=== PATIENT | female | born 1975 | race Caucasian/White ===

== ENCOUNTER 2019-09-18 10:30 | Outpatient (CLI) | payer BC, SELFPAY ==
--- NOTE | ~2019-09-18 | MM_ITS ---
EXAMINATION: MM screening angela BI w lindsay HISTORY: Screening mammogram TECHNIQUE: Craniocaudal and mediolateral oblique 3-D tomosynthesis images were obtained and synthetic 2-D images were generated. CAD analysis was submitted and interpreted. COMPARISON: 07/13/2018, 06/07/2017, 06/03/2016 bilateral digital screening mammogram examinations BREAST PARENCHYMAL COMPOSITION: There are scattered areas of fibroglandular density. FINDINGS: A 5.5 mm mass is present in the lower posterior right breast medially (MLO Tomosynthesis im age 48/74). Otherwise there is no evidence of suspicious mass, calcification, or architectural distortion to sugg est malignancy in either breast. There has been no suspicious interval change. IMPRESSION: 1. 5.5 mm new mass is in the posterior lower inner right breast 2. Recommend diagnostic right mammogram and right breast ultrasound examination BI-RADS Category 0: Incomplete: Needs additional imaging evaluation. Reviewed, dictated and finalized at location A.
== END 2019-09-18 10:31 | disposition home or self-care (01) ==
LOC: ANHIMG 10:44
PROVIDERS: PCP Internal Medicine; Visit Provider Obstetrics & Gynecology
DX: Z12.31 Encounter for screening mammogram for malignant neoplasm of breast (principal); R92.8 Other abnormal and inconclusive findings on diagnostic imaging of breast
CPT/HCPCS: 77063; 77067

== ENCOUNTER 2019-10-02 13:16 | Outpatient (CLI) | payer BC, SELFPAY ==
--- NOTE | ~2019-10-02 | MMUS_ITS ---
EXAMINATION: MM diagnostic mammo unilat RT, US breast RT limited HISTORY: 5.5 mm new mass suggested in posterior lower inner right breast on screening mammogram of TECHNIQUE: ML full-field and MLO and cc spot 3-D tomosynthesis images of the right breast were perfor med and synthetic 2-D images were generated. CAD analysis was submitted and interpreted. High resolut ion targeted lower inner quadrant right breast ultrasound was performed. COMPARISON: 09/18/2019 bilateral digital screening mammogram FINDINGS: MAMMOGRAPHIC FINDINGS: Up to approximately 4 mm asymmetric 4 mm ill-defined opacity is suggested posteriorly in the lower in ner right breast. ULTRASOUND: No corresponding sonographic correlate could be located. IMPRESSION: 1. Probable benign finding 2. Six-month diagnostic right mammogram and targeted right breast ultrasound examination are recommen ded. BI-RADS category 3, probably benign findings. Reviewed, dictated and finalized at location A. IMPRESSION: 1. Probable benign finding 2. Six-month diagnostic right mammogram and targeted right breast ultrasound ex amination are recommended. BI-RADS category 3, probably benign findings.
== END 2019-10-02 13:17 | disposition home or self-care (01) ==
PROVIDERS: PCP Internal Medicine; Visit Provider Obstetrics & Gynecology
DX: R92.8 Other abnormal and inconclusive findings on diagnostic imaging of breast (principal)
CPT/HCPCS: 76642; 77065

== ENCOUNTER 2020-04-02 13:13 | Outpatient (CLI) | payer BC, SELFPAY ==
--- NOTE | ~2020-04-02 | MMUS_ITS ---
EXAMINATION: MM diagnostic angela RT w lindsay, US breast RT limited HISTORY: Six-month follow-up of 4 mm ill-defined mammographic opacity posteriorly in the lower inner right breast on 10/02/2019 the diagnostic right digital mammogram TECHNIQUE: ML, MLO and cc full field and spot 3-D tomosynthesis images of right breast were performed and synthetic 2-D images were generated. CAD analysis was submitted and interpreted. High resolution lower inner quadrant right breast ultrasound was performed. COMPARISON: 10/02/2019 diagnostic right digital mammogram and limited right breast ultrasound BREAST PARENCHYMAL COMPOSITION: There are scattered areas of fibroglandular density. FINDINGS: MAMMOGRAPHIC FINDINGS: There is a circumscribed 5 mm low-density opacity situated posteriorly in the lower inner quadrant of the right breast. No suspicious mass or architectural distortion, malignant constipation, skin thickening or retraction of the right breast is evident otherwise. ULTRASOUND: At 4:00 5 cm from the nipple there is a septated cyst measuring approximately 3.6 x 5.8 mm, without i nternal vascularity or posterior shadowing. IMPRESSION: 1. Benign septated approximately 3.6 x 5.8 mm cyst at 4:00 5 cm from nipple 2. No mammographic evidence of malignancy 3. Routine annual mammographic screening is recommended BI-RADS Category 2: Benign finding(s). Reviewed, dictated and finalized at location A. 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 Benign septated approximately 3.6 x 5.8 mm cyst at 4:00 5 cm from nipple 2. No mammographic evidence of malignancy 3. Routine annual mammographic screening is recommended BI-RADS Category 2: Benign finding(s).
== END 2020-04-02 13:14 | disposition home or self-care (01) ==
PROVIDERS: PCP Internal Medicine; Visit Provider Obstetrics & Gynecology
DX: N60.01 Solitary cyst of right breast (principal)
CPT/HCPCS: 76642; 77061; 77065; G0279

== ENCOUNTER 2021-05-12 14:22 | Outpatient (CLI) | payer BC, SELFPAY ==
--- NOTE | ~2021-05-12 | MM_ITS ---
EXAMINATION: MM screening angela BI w lindsay HISTORY: Screening TECHNIQUE: Craniocaudal and mediolateral oblique 3-D tomosynthesis images were obtained and synthetic 2-D images were generated. CAD analysis was submitted and interpreted. COMPARISON: Comparison to multiple prior studies sequentially, with oldest reviewed study dated 05/2016. BREAST PARENCHYMAL COMPOSITION: The breasts are heterogeneously dense, which may obscure small masses . FINDINGS: There is no evidence of suspicious mass, calcification, or architectural distortion to sugg est malignancy in either breast. There has been no suspicious interval change. IMPRESSION: 1. No mammographic evidence of malignancy. 2. Recommend routine screening mammography in one year. BI-RADS Category 1: Negative Reviewed, dictated and finalized at location A. 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
== END 2021-05-12 14:23 | disposition home or self-care (01) ==
LOC: ANHIMG 14:24
PROVIDERS: PCP Internal Medicine; Visit Provider Internal Medicine
DX: Z12.31 Encounter for screening mammogram for malignant neoplasm of breast (principal)
CPT/HCPCS: 77063; 77067

== ENCOUNTER 2022-08-21 09:41 | Outpatient (CLI) | payer BC, SELFPAY ==
--- NOTE | ~2022-08-21 | MM_ITS ---
EXAMINATION: MM screening [facility] BI w lindsay HISTORY: Screening mammogram TECHNIQUE: Craniocaudal and mediolateral oblique 3-D tomosynthesis images were obtained and synthetic 2-D images were generated. CAD analysis was submitted and interpreted. COMPARISON: 05/12/2021, 04/02/2020, 10/21/2019, 09/18/2019 BREAST PARENCHYMAL COMPOSITION: The breasts are heterogeneously dense, which may obscure small masses . FINDINGS: A chronic stable mass of the lower inner breast is considered benign given the lack of inte rval change. No suspicious mass, calcification, or architectural distortion are identified in either breast to suggest malignancy. There has been no suspicious interval change. IMPRESSION: 1. No mammographic evidence of malignancy. 2. Recommend routine screening mammography in one year. BI-RADS Category 2: Benign finding(s). Reviewed, dictated and finalized at location A.
== END 2022-08-21 09:42 | disposition home or self-care (01) ==
PROVIDERS: PCP Internal Medicine; Visit Provider Obstetrics & Gynecology
DX: Z12.31 Encounter for screening mammogram for malignant neoplasm of breast (principal)
CPT/HCPCS: 77063; 77067

== ENCOUNTER 2023-02-15 14:23 | Emergency (ER) | payer BC, SELFPAY ==
--- NOTE | 2023-02-15 14:26 | ED.UPPEXIN ---
HPI - Extremity Injury (Upper) General Chief Complaint: Skin/Abscess/Foreign Body Stated Complaint: L FINGER PAIN/SWELLING Time Seen by Provider: 02/15/23 14:26 Source: patient Mode of arrival: ambulatory Limitations: no limitations History of Present Illness HPI narrative: Patient is a 47-year-old female who presents with swelling and pain to the tip of left 5th digit. Patient states she was driving yesterday when she felt like she got stung/bit. Patient has noticed increase in swelling and pain. Reports it looks like a blister. Denies any drainage from area. Does reports redness surrounding the blister Related Data Allergies Allergy/AdvReac Type Severity Reaction Status Date / Time sulfamethizole Allergy Unknown Hives Verified 02/11/23 09:40 sulfamethoxazole Allergy Unknown Itching Verified 02/11/23 09:40 trimethoprim Allergy Unknown Rash Verified 02/11/23 09:40 Review of Systems Review of Systems: All systems reviewed & are unremarkable except as noted in HPI and below Constitutional: Constitutional: Denies body ache(s), Denies chills, Denies fatigue, Denies fever(s), Denies headache(s), Denies malaise and Denies weakness Eyes: Eyes: Denies blurry vision, Denies irritation and Denies loss of vision ENT: Denies otalgia, Denies headache(s), Denies nasal discharge, Denies sinus pain and Denies sore throat Cardiovascular: Cardiovascular: Denies chest pain, Denies irregular heart rhythm and Denies dyspnea Respiratory: Respiratory: Denies dyspnea Gastrointestinal: Gastrointestinal: Denies abdominal pain, Denies melena, Denies hematochezia, Denies diarrhea, Denies nausea and Denies vomiting Musculoskeletal: Musculoskeletal: Denies back pain, Denies myalgias and Denies arthralgias Integumentary/Breasts: Skin/Breast: Denies pruritus, Denies rash and Reports wounds Neurologic: Denies headache(s), Denies loss of vision and Denies weakness Psychiatric: Psychiatric: Reports no additional psychiatric complaints Endocrine: Endocrine: Denies fatigue PMFSH Family History Family History Mother Depression Father Hypertension Family history of cardiovascular disease Family history of chronic obstructive pulmonary disease Family history of cardiomyopathy, Onset Age: 67 Family history of atrial fibrillation Grandparent Family history of cardiovascular disease Sibling Hypertension Other Family history of allergic disorder Family history of kidney disease Family history of malignant neoplasm Social History Social History Smoking status: Never smoker Second hand tobacco smoke exposure: No Alcohol intake: current Alcohol use details: occasionally Substance use: never Substance use type: does not use Lack of Transportation: No Lack of Food: Never True Current Housing: I Have Housing Concerned About Future Housing: No Difficulty Paying Gas/Electric Bills: No Difficulty Paying for Meds: No Currently Unemployed: No Education: Bachelor's Degree Difficulty w/ Childcare or Family Care: No Comments At time of signature, agree with nursing past medical, surgical, social and family history. There is no relevant family history pertinent to the presenting complaint. Exam Const: General: cooperative, healthy appearing, comfortable, no acute distress and well nourished Nutritional Appearance: well nourished Orientation/consciousness: patient oriented x3 Limitations: no limitations HENMT: Head: normal to inspection, normocephalic and atraumatic Ears: hearing grossly normal bilaterally and external ears normal Face/Nose/Sinus: Normal external nose present, normal facial exam and face symmetric Face and sinus: normal facial exam and face symmetric Mouth: Yes lip normal Eyes: General: appearance normal, both eyes and all related structures Alignment and Position: alignment
[2023-02-15 14:32] VITALS: BP 130/91; PULSE 78; RESP 18; TEMP 37; O2SAT 100
== END 2023-02-15 15:16 | disposition home or self-care (01) ==
PROVIDERS: Emergency Provider Nurse Practitioner Family; PCP Nurse Practitioner
DX: L03.012 Cellulitis of left finger (principal); L02.512 Cutaneous abscess of left hand; I10 Essential (primary) hypertension
CPT/HCPCS: 10160; 99213; G0463

== ENCOUNTER 2023-02-24 12:41 | Outpatient (CLI) | payer BC, SELFPAY ==
--- NOTE | ~2023-02-24 | US_ITS ---
EXAMINATION: US carotid duplex BI DATE: 02/24/2023 13:57 INDICATION: Sudden vision loss TECHNIQUE: Grayscale, color Doppler, and pulsed Doppler images of the cervical carotid arteries were obtained. The degree of vessel stenosis is placed in one of the following categories: normal, <50%, 5 0-69%, >=70% but less than near-occlusion, near-occlusion, or total occlusion. Note that percent sten osis relative to normal distal artery lumen diameter is indirectly measured from velocity measurement s as described by Andrzej, et al. Radiology 2003; [id number]. Notes: Normal: Peak systolic velocity <125 centimeters/sec and no plaque <50%. Peak systolic velocity <125 ( EDV <40; ICA/CCA PSV ratio <2.0; used these factors only a tandem lesions or low cardiac output or co ntralateral disease) 50-69 %: PSV 125-230 (EDV 40-100; ratio 2-4) >= 70% but less than near occlusion: PSV greater than 230 (EDV > 100; ratio> 4.0) Near Occlusion: PSV that is variable; markedly narrowed lumen Occlusion: Absent flow on color/spectral Doppler and no lumen on larson scale. COMPARISON: None. FINDINGS: RIGHT: The right common carotid artery (CCA) peak systolic velocity (PSV) is 126 cm/s. The right internal ca rotid artery (ICA) PSV is 99 cm/s. The right ICA end-diastolic velocity (EDV) is 41 cm/s. The right I CA/CCA PSV ratio is 0.8. The external carotid artery (ECA) PSV is 105 cm/s. There is antegrade flow i n the right vertebral artery. LEFT: The left CCA PSV is 131 cm/s. The left ICA PSV is 117 cm/s. The left ICA EDV is 44 cm/s. The left ICA /CCA PSV ratio is 0.9. The ECA PSV is 97 cm/s. There is antegrade flow in the left vertebral artery. IMPRESSION: 1. Less than 50% stenosis in the right internal carotid artery by sonographic criteria. 2. Less than 50% stenosis in the left internal carotid artery by sonographic criteria. Reviewed, dictated and finalized at location B. IMPRESSION: 1. Less than 50% stenosis in the right internal carotid artery by sonographic c milad. 2. Less than 50% stenosis in the left internal carotid artery by sonographic fransico hinkle.
== END 2023-02-24 12:42 | disposition home or self-care (01) ==
PROVIDERS: PCP Nurse Practitioner; Visit Provider Nurse Practitioner
DX: H53.139 Sudden visual loss, unspecified eye (principal); I65.23 Occlusion and stenosis of bilateral carotid arteries
CPT/HCPCS: 93880

== ENCOUNTER 2023-02-26 00:23 | Day surgery (SDC) | payer BC, SELFPAY ==
[2023-02-16 14:44] VITALS: BMI 23.5
[2023-02-26 10:11] VITALS: BP 99/75; PULSE 109; RESP 16; TEMP 36.1; O2SAT 100
[2023-02-26] MEDS: LACTATED RINGERS 1,000 ML 150 ML IV CONT (10:26)
--- NOTE | 2023-02-26 10:38 | P.PNAN_ITS ---
Anes - Initial Pre Proc Eval Procedure: Operation Date: 02/26/23 11:00 Proposed Procedures p Screening Colonoscopy - hSabbir Melvin MD Date/Time: 02/26/23 10:38 Surgeon: Shabbir Melvin MD Pre Op Diagnosis: neoplasm screening Patient Data Age: 47 Gender: F Height: 1.68 m Weight: 62.4 kg Last Vital Signs Temp 97.0 F L 02/26/23 10:11 Pulse 109 H 02/26/23 10:11 Resp 16 02/26/23 10:11 BP 99/75 L 02/26/23 10:11 Pulse Ox 100 02/26/23 10:11 O2 Del Method Room Air 02/26/23 10:11 Allergies Allergy/AdvReac Type Severity Reaction Status Date / Time sulfamethizole Allergy Unknown Hives Verified 02/26/23 09:49 sulfamethoxazole Allergy Unknown Itching Verified 02/26/23 09:49 trimethoprim Allergy Unknown Rash Verified 02/26/23 09:49 Home Medications Medication Instructions Recorded Confirmed Type No Home Medications 02/16/23 02/26/23 History Patient hx anesthesia problems: none Family hx anesthesia problems: none Results Review: All pre-operative results and documents have been reviewed as part of the pre- operative evaluation. [facility] Family History Family History Mother Depression Father Hypertension Family history of cardiovascular disease Family history of chronic obstructive pulmonary disease Family history of cardiomyopathy, Onset Age: 67 Family history of atrial fibrillation Grandparent Family history of cardiovascular disease Sibling Hypertension Other Family history of allergic disorder Family history of kidney disease Family history of malignant neoplasm Social History Social History Smoking status: Never smoker Second hand tobacco smoke exposure: No Alcohol intake: current Alcohol use details: socially Substance use: never Substance use type: does not use Lack of Transportation: No Lack of Food: Never True Current Housing: I Have Housing Concerned About Future Housing: No Difficulty Paying Gas/Electric Bills: No Difficulty Paying for Meds: No Currently Unemployed: No Education: Bachelor's Degree Difficulty w/ Childcare or Family Care: No Living arrangements: with family Spiritual care concerns: No Anes - Eval Final PreProcedure Day of Procedure 02/26/23 10:38 Patient weight: normal Heart: regular rate and rhythm Lungs: clear to auscultation Airway: Mallampati scale class II Neurological: alert and oriented Last oral intake: >/= 8 hours ASA classification: II Emergent: no Anesthetic plan: proceed Anesthesia type and monitoring: general GIVS and standard monitoring Results Review: All pre-operative results and documents have been reviewed as part of the pre- operative evaluation. Informed Consent: The patient's anesthetic plan and its attendant risks and benefits were discussed with the patient/family/POA. Questions were solicited and answers provided to the satisfaction of the patient/family/POA.
--- NOTE | 2023-02-26 11:56 | PM.HPGS ---
History of Present Illness History of Present Illness Consent: Risks, benefits, and alternatives have been discussed and questions answered. Patient agrees to proceed with procedure. Chief complaint: neoplasm screening Narrative: Henrietta Reese is a 47 year old female here for first screening colonoscopy Review of Systems Constitutional: Constitutional: Denies headache(s) and Denies weakness Eyes: Eyes: Denies blurry vision ENT: Reports Normal hearing present, Denies headache(s) and Denies neck pain Cardiovascular: Cardiovascular: Denies chest pain and Denies dyspnea Respiratory: Respiratory: Denies dyspnea Gastrointestinal: Gastrointestinal: Reports no additional gastrointestinal complaints Genitourinary: Genitourinary: Denies dysuria Musculoskeletal: Musculoskeletal: Denies neck pain Integumentary/Breasts: Skin/Breast: Denies dry skin Neurologic: Reports Normal hearing present, Denies headache(s) and Denies weakness Psychiatric: Psychiatric: Denies anxiety Endocrine: Endocrine: Denies change in body appearance Hematologic/Lymphatic: Hematologic/Lymphatic: Denies easy bleeding Allergic/Immunologic: Allergic/Immunologic: Denies urticaria PMFSH Family History Family History Mother Depression Father Hypertension Family history of cardiovascular disease Family history of chronic obstructive pulmonary disease Family history of cardiomyopathy, Onset Age: 67 Family history of atrial fibrillation Grandparent Family history of cardiovascular disease Sibling Hypertension Other Family history of allergic disorder Family history of kidney disease Family history of malignant neoplasm Social History Social History Smoking status: Never smoker Second hand tobacco smoke exposure: No Alcohol intake: current Alcohol use details: socially Substance use: never Substance use type: does not use Lack of Transportation: No Lack of Food: Never True Current Housing: I Have Housing Concerned About Future Housing: No Difficulty Paying Gas/Electric Bills: No Difficulty Paying for Meds: No Currently Unemployed: No Education: Bachelor's Degree Difficulty w/ Childcare or Family Care: No Living arrangements: with family Spiritual care concerns: No Meds Home Medications and Allergies Home Medications Medication Instructions Recorded Confirmed Type No Home Medications 02/16/23 02/26/23 History Allergies Allergy/AdvReac Type Severity Reaction Status Date / Time sulfamethizole Allergy Unknown Hives Verified 02/26/23 09:49 sulfamethoxazole Allergy Unknown Itching Verified 02/26/23 09:49 trimethoprim Allergy Unknown Rash Verified 02/26/23 09:49 Vital Signs Vital Signs - 24 hr 02/26/23 10:11 Temperature 97.0 F L Pulse Rate 109 H Respiratory Rate 16 Blood Pressure 99/75 L Pulse Oximetry 100 Oxygen Delivery Room Air Exam Const: General: comfortable and no acute distress HENMT: Face/Nose/Sinus: Normal nares present Eyes: General: appearance normal, both eyes and all related structures Neck: Neck: no JVD Resp: Auscultation: clear to auscultation bilaterally Cardio: Rate: regular rate Rhythm: regular rhythm GI: Inspection: non-distended GI Palp: Yes Soft to palpation Skin: General skin exam: normal color Neuro: General: gait normal Speech: normal speech Extrem: General: normal to inspection Psych: Mental Status: mental status grossly normal Assessment and Plan Assessment and plan (1) Encounter for screening colonoscopy: Code(s): Z12.11 - Encounter for screening for malignant neoplasm of colon Status: Acute Assessment and Plan: colonoscopy
[2023-02-26 12:17] VITALS: BP 104/57; PULSE 82; RESP 24; O2SAT 100
[2023-02-26 12:27] VITALS: BP 108/54; PULSE 85; RESP 17; O2SAT 98
[2023-02-26 12:37] VITALS: BP 109/64; PULSE 71; RESP 20; O2SAT 100
== END 2023-02-26 12:50 | disposition home or self-care (01) ==
PROVIDERS: PCP Nurse Practitioner; Visit Provider Internal Medicine Gastroenterology
PROC: 0DJD8ZZ Inspection of Lower Intestinal Tract, Via Natural or Artificial Opening Endoscopic (ICD-10-PCS; CPT 45378; principal; 2023-02-26 11:00)
DX: Z12.11 Encounter for screening for malignant neoplasm of colon (principal)
CPT/HCPCS: 45378; J2704; J7120

== ENCOUNTER 2023-10-18 08:39 | Outpatient (CLI) | payer BC, SELFPAY ==
--- NOTE | ~2023-10-18 | MM_ITS ---
EXAMINATION: MM screening angela BI w lindsay HISTORY: Screening TECHNIQUE: Craniocaudal and mediolateral oblique 3-D tomosynthesis images were obtained and synthetic 2-D images were generated. CAD analysis was submitted and interpreted. COMPARISON: Comparison to multiple prior studies sequentially, with oldest reviewed study dated 07/13. BREAST PARENCHYMAL COMPOSITION: Dense: The breasts are heterogeneously dense, which may obscure small masses FINDINGS: There is no evidence of suspicious mass, calcification, or architectural distortion to sugg est malignancy in either breast. There has been no suspicious interval change. IMPRESSION: 1. No mammographic evidence of malignancy. 2. Recommend routine screening mammography in one year. BI-RADS Category 1: Negative Reviewed, dictated and finalized at location B.
== END 2023-10-18 08:40 | disposition home or self-care (01) ==
LOC: ANHIMG 08:40
PROVIDERS: PCP Nurse Practitioner; Visit Provider Obstetrics & Gynecology
DX: Z12.31 Encounter for screening mammogram for malignant neoplasm of breast (principal)
CPT/HCPCS: 77063; 77067

== ENCOUNTER 2023-10-29 14:47 | Emergency (ER) | payer BC, SELFPAY ==
[2023-10-29 15:01] VITALS: BP 139/77; PULSE 78; RESP 16; TEMP 36.9; O2SAT 100
--- NOTE | 2023-10-29 15:10 | ED.URI ---
HPI - URI/Sore Throat General Chief Complaint: Upper Respiratory Infection Stated Complaint: Cough/Sore Throat Source: patient and RN notes reviewed Mode of arrival: ambulatory Limitations: no limitations History of Present Illness HPI Narrative: 47-year-old female presented for complaint of sore throat, left ear pain, cough, headache and nasal congestion. Onset yesterday. Denies shortness of breath, wheezing, nausea, vomiting diarrhea, fevers or chills. States she is leaving for [place] tomorrow and wanted testing. Has not taken anything for symptoms. MD elicited complaint: cough Related Data Allergies Allergy/AdvReac Type Severity Reaction Status Date / Time sulfamethizole Allergy Unknown Hives Verified 10/29/23 15:17 sulfamethoxazole Allergy Unknown Itching Verified 10/29/23 15:17 trimethoprim Allergy Unknown Rash Verified 10/29/23 15:17 Review of Systems Review of Systems: CONSTITUTIONAL: Denies malaise, chills, sweats, fever EYES: Denies visual changes, redness, or discharge ENT: Reports rhinorrhea, congestion, otalgia, sore throat CARDIOVASCULAR: Denies chest pain, palpitations, edema RESPIRATORY: Reports cough, post nasal drainage. Denies dyspnea GASTROINTESTINAL: Denies abdominal pain, nausea, vomiting, diarrhea SKIN: Denies rash or itching MUSCULOSKELETAL: Denies myalgia NEUROLOGIC: Reports headache PMFSH Family History Family History Mother Depression Father Hypertension Family history of cardiovascular disease Family history of chronic obstructive pulmonary disease Family history of cardiomyopathy, Onset Age: 67 Family history of atrial fibrillation Grandparent Family history of cardiovascular disease Sibling Hypertension Other Family history of allergic disorder Family history of kidney disease Family history of malignant neoplasm Social History Social History Smoking status: Never smoker Second hand tobacco smoke exposure: No Alcohol intake: current Alcohol use details: socially Substance use: never Substance use type: does not use Lack of Transportation: No Lack of Food: Never True Current Housing: I Have Housing Concerned About Future Housing: No Difficulty Paying Gas/Electric Bills: No Difficulty Paying for Meds: No Currently Unemployed: No Education: Bachelor's Degree Difficulty w/ Childcare or Family Care: No Living arrangements: with family Spiritual care concerns: No Exam Narrative: GENERAL: well-appearing EYES: PERRLA, conjunctivae clear ENT: Mucous membranes moist. TM pearly larson with dull light reflex bilaterally; no tragal tenderness. Oropharynx not erythematous without lesions or exudate, no drooling, no hoarseness, no trismus, uvula midline. No tripod positioning, muffled voice, soft palate or pharyngeal wall bulging NECK: Supple. No lymphadenopathy CHEST: Clear to auscultation, breath sounds equal. No wheezing, rhonchi, rales, or stridor. No respiratory distress, speaks in full sentences. HEART: Regular rate and rhythm. No murmur heard. SKIN: Warm, dry, no rash. NEURO: Alert and oriented x3. PSYCH: Normal mood and affect Course Course Emergency Course: Patient is aware of diagnosis, understands and agrees to treatment plan. Anticipatory guidance given. Patient agrees to follow-up as directed and is aware of reasons to seek care at the emergency department. Portions of this record may have been created with voice recognition software Level of Care: Express Care Visit Vital Signs Vital signs: Vital Signs Temperature 98.5 F 10/29/23 15:01 Pulse Rate 78 10/29/23 15:01 Respiratory Rate 16 10/29/23 15:01 Blood Pressure 139/77 10/29/23 15:01 Pulse Oximetry 100 10/29/23 15:01 Temperature 98.5 F 10/29/23 15:01 Pulse Rate 78 10/29/23 15:01 Respiratory Rate 16
[2023-10-29 15:22] VITALS: O2SAT 100
== END 2023-10-29 15:30 | disposition home or self-care (01) ==
PROVIDERS: Emergency Provider Nurse Practitioner Family; PCP Nurse Practitioner
DX: J06.9 Acute upper respiratory infection, unspecified (principal); Z20.822 Contact with and (suspected) exposure to COVID-19
CPT/HCPCS: 87081; 87426; 87804; 87880; 99213; G0463

== ENCOUNTER 2023-11-13 13:14 | Emergency (ER) | payer BC, SELFPAY ==
[2023-11-13 13:21] VITALS: BP 134/79; PULSE 74; RESP 16; TEMP 36.8; O2SAT 100
--- NOTE | 2023-11-13 13:36 | ED.EYEPROB ---
HPI - Eye Problem General Chief complaint: Eye Problems Stated complaint: EYE REDNESS Time Seen by Provider: 11/13/23 13:36 Source: patient, RN notes reviewed and old records reviewed Mode of arrival: ambulatory Limitations: no limitations History of Present Illness HPI Narrative: patient presents with complaints of irritation to both eyes. She reports that this has been an intermittent problem for approximately 6 weeks. She has been her eye doctor for this problem, she reports she has tried a couple different kinds of contacts thinking that that was the problem. She is currently not wearing contacts. She did use pinkeye medication that she had at home 1 time last night. She has also been using prescription eyedrops from her eye doctor. Drops prescribed by eye doctor are not antibacterial. Patient reports that her symptoms are worsening. She denies foreign body, she denies injury or trauma. She does report the eyes were matted shut this morning Related Data Home Medications Medication Instructions Recorded Confirmed latanoprost 0.005 % eye drops 1 drp EACH EYE DAILY 11/13/23 11/13/23 Allergies Allergy/AdvReac Type Severity Reaction Status Date / Time sulfamethizole AdvReac Mild Hives Verified 11/13/23 13:18 sulfamethoxazole AdvReac Mild Itching Verified 11/13/23 13:18 trimethoprim AdvReac Mild Rash Verified 11/13/23 13:18 Review of Systems Review of Systems: All systems reviewed & are unremarkable except as noted in HPI and below Constitutional: Constitutional: Reports no additional constitutional complaints Eyes: Eyes: Reports as per HPI, Denies change in vision, Reports eye discharge, Reports irritation, Reports itchy eyes, Denies loss of vision and Reports requires corrective lenses ENT: Reports system reviewed and no additional complaints, except as documented Cardiovascular: Cardiovascular: Reports no additional cardiovascular complaints Respiratory: Respiratory: Reports no additional respiratory complaints Gastrointestinal: Gastrointestinal: Reports no additional gastrointestinal complaints [facility] Family History Family History Mother Depression Father Hypertension Family history of cardiovascular disease Family history of chronic obstructive pulmonary disease Family history of cardiomyopathy, Onset Age: 67 Family history of atrial fibrillation Grandparent Family history of cardiovascular disease Sibling Hypertension Other Family history of allergic disorder Family history of kidney disease Family history of malignant neoplasm Social History Social History Smoking status: Never smoker Second hand tobacco smoke exposure: No Alcohol intake: current Alcohol use details: socially Substance use: never Substance use type: does not use Lack of Transportation: No Lack of Food: Never True Current Housing: I Have Housing Concerned About Future Housing: No Difficulty Paying Gas/Electric Bills: No Difficulty Paying for Meds: No Currently Unemployed: No Education: Bachelor's Degree Difficulty w/ Childcare or Family Care: No Living arrangements: with family Spiritual care concerns: No Comments At the time of my signature, I reviewed and agree with the nursing past medical, surgical, social, and family history. There is no relevant family history pertinent to the patient complaint. Exam Const: General: cooperative, no acute distress, alert and awake Orientation/consciousness: oriented to person, oriented to place and oriented to time HENMT: Head: normal to inspection Eyes: Conjunctivae: conjunctival abnormality bilateral conjunctival injection and discharge Sclera: scleral abnormality bilateral scleral exudate mucoid and scleral injection diffuse; without foreign bodies Pupils: Equal, round and reactive pupils present Resp: Eff
== END 2023-11-13 13:48 | disposition home or self-care (01) ==
PROVIDERS: Emergency Provider Nurse Practitioner Family; PCP Nurse Practitioner
DX: H10.9 Unspecified conjunctivitis (principal)
CPT/HCPCS: 99213; G0463

== ENCOUNTER 2024-12-25 07:53 | Outpatient (CLI) | payer BC, SELFPAY ==
--- NOTE | ~2024-12-25 | MM_ITS ---
EXAMINATION: MM screening angela BI w lindsay HISTORY: Screening TECHNIQUE: Craniocaudal and mediolateral oblique 3-D tomosynthesis images were obtained and synthetic 2-D images were generated. CAD analysis was submitted and interpreted. COMPARISON: Comparison to multiple prior studies sequentially, with oldest reviewed study dated 09/18/2019. BREAST PARENCHYMAL COMPOSITION: Not dense: There are scattered areas of fibroglandular density. FINDINGS: There is no evidence of suspicious mass, calcification, or architectural distortion to suggest malignancy in either breast. There has been no suspicious interval change. IMPRESSION: 1. No mammographic evidence of malignancy. 2. Recommend routine screening mammography in one year. Reviewed, dictated and finalized at location O.
--- OUTSIDE RECORDS SUMMARY | 2024-12-25 07:58 | XMS_ITS | Clinical Summary ---
Author Organization [facility] [employer] Address [address] [place] [address] Care Team Providers Care Shrimper Name Role Phone Radha Elkins MD Primary Care Provider [phone] Source Comments [facility] [employer],non-owned [facility] and Associated Physician Practices is amultiple site organization consisting of ambulatory clinics and hospital sitesin [place], [place], [place] and [place]. This disclosure is being madepursuant to the Care Everywhere program and may not contain all information available regarding this patient. Last updated 18.[facility] [employer] Allergies Active Allergy Reactions Criticality Noted Date Comments Sulfamethoxazole W-Trimethoprim Rash,Itching Medium Medications * Be aware that medications may not be up to date on this document. Alwaysverify current medications with the patient. No known medications Active Problems Problem Noted Date Diagnosed Date Chronic cholecystitis with calculus 10/11/2017 Immunizations Immunization Administration Dates Next Due FLU VACCINE QUAD IIV4 PF ID 03/20/2016 INFLUENZA VACCINE, QUADR. (F LUZONE; FLULAVAL; FLUARIX; AFLURIA QUADRIVALENT; 6MO+), 0.5 ML (IIV4) 01/26/2019,03/17/2018,04/02/2017 Family History Relation Name Status Comments Father Mother Alive Social History Tobacco Use Types Packs/Day Years Used Date Smoking Tobacco: Never Smokeless Tobacco: Never Comments No Sex and Gender Information Value Date Recorded Sex Assigned at Not on file Legal Sex Female 2:00 PM CDT Gender Identity Not on file Sexual Orientation Not on file Last Filed Vital Signs Vital Sign Reading Time Taken Comments Blood Pressure 118/68 07/14/2019 5:37 PM CDT Pulse 70 07/14/2019 5:37 PM CDT Temperature 36.7 C (98.1 F) 07/14/2019 5:37 PM CDT Respiratory Rate 16 07/14/2019 5:37 PM CDT Oxygen Saturation 98% 07/14/2019 5:37 PM CDT Inhaled Oxygen Concentration - - Weight 72.6 kg (160 lb) 07/14/2019 5:37 PM CDT Height 170.2 cm (5' 7) 07/14/2019 5:37 PM CDT Body Mass Index 25.06 07/14/2019 5:37 PM CDT Plan of Treatment Health Maintenance Due Date Last Done Comments COLOGUARD (AGES 45-75) - COLON CA SCREENING 1975 COLON MONITORING 1975 COLONOSCOPY - COLON CA SCREENING 1975 CT COLONOGRAPHY - COLON CA SCREENING 1975 Colorectal Cancer Screening 1975 FIT - COLON CA SCREENING 1975 FLEX SIG - COLON CA SCREENING 1975 LIPID TESTING 1975 MAMMOGRAM 1975 HIV SCREENING 12/06/1990 HEPATITIS C SCREENING 12/02/1993 DTAP/TDAP/TD VACCINES (1 - Tdap) 12/06/1994 HEPATITIS B VACCINE (1 of 3 - 19+ 3-dose series) 12/06/1994 SCREENING FOR DIABETES 07/14/2019 COVID-19 VACCINE (1 - 2023- season) 2024 DEPRESSION SCREENING 05/03/2024 INFLUENZA VACCINE (#1) 2025 9, 03/17/2018, 04/02/2017, Additional history exists ZOSTER VACCINE (1 of 2) 12/06/2025 HIB VACCINE Aged Out No longer eligi ble based on patient's age to complete this topic HPV VACCINE Aged Out No longer eligi ble based on patient's age to complete this topic MENINGOCOCCAL (Group B) VACCINE SHARED DECISION-MAKING Aged Out No longer eligible based on patient's age to complete this topic MENINGOCOCCAL GROUPS A/C/Y/W VACCINE Aged Out No longer eligible based on patient's age to complete this topic Insurance ANTHEM ANTHEM Care Teams Shrimper Relationship Specialty Start Date End Date Radha Elkins MD [address] [facility] [address] [place] [id number] PCP - General Family Medicine 04/02/17
== END 2024-12-25 07:54 | disposition home or self-care (01) ==
LOC: ANHIMG 07:53
PROVIDERS: PCP Nurse Practitioner; Visit Provider Obstetrics & Gynecology
DX: Z12.31 Encounter for screening mammogram for malignant neoplasm of breast (principal)
CPT/HCPCS: 77063; 77067